=== PATIENT | female | born 1995 | race Caucasian/White ===

== ENCOUNTER 2022-05-19 21:13 | Emergency (ER) | payer BC ==
[2022-05-19 23:33] LABS: HEMOGLOBIN 13.1 gm/dl (12.3-15.3); RED BLOOD COUNT 4.48 M/UL (4.00-5.10); WHITE BLOOD COUNT 12.8 K/UL (4.5-11.0)
[2022-05-20 01:00] LABS: BUN/CREATININE RATIO 25 (0-10)
== END 2022-05-20 01:40 | disposition home or self-care (01) ==
LOC: ER1 21:13
PROVIDERS: Student in an Organized Health Care Education/Training Program
DX: E86.0 Dehydration (principal); R51.9 Headache, unspecified
CPT/HCPCS: 80053; 81001; 84703; 85025; 96361; 96374; 99284; J0780